=== PATIENT | female | born 1955 | race Caucasian/White ===

== ENCOUNTER 2017-01-23 18:05 | Emergency (ER) | payer OTHER ==
[~2017-01-23 18:05] MED LIST: APRES25 PO; ASAB PO; ASAEC PO; COREG12 PO; COREG6 PO; COZ50 PO; COZAAR100 MG PO; CRESTOR40 MG PO; ELIQUIS 2.5 MG2.5 MG PO; GLUCPH PO; HYDROCORTISO2.5 % TOP; IMDUR30 PO; IMDUR60 PO; ISOSORB DIN30 MG PO; JANUVIA50 PO; KLONO2; KLONO2 PO; KLONO5 PO; LANTUS SC; LEXAPRO10 PO; LEXAPRO20 PO; LIPITOR80 MG PO; LOP25 PO; LORTAB 5 PO; METHOC500B PO; NITROSTAT0.4 MG SL; NORCO1 TA1 PO; NORV5 PO; NOVOLOG SC; PLAVIX PO; RAN500 PO; SPIRO25 PO; SURFAK PO; V5 PO; VICODINTAB PO; VITD PO; ZETIA PO; ZOFRAN4; ZOFRAN4 PO; ZOL50 PO
[2017-01-23 18:31] LABS: BASOPHILS 0.3 %; BASOPHILS ABSOLUTE 0.02 10/3/uL (0.0-0.16); EOSINOPHILS 2.8 %; EOSINOPHILS ABSOLUTE 0.18 10/3/uL (0.0-0.53); HEMATOCRIT 38.1 % (36.0-48.0); HEMOGLOBIN 12.6 g/dL (12.0-16.0); IMMATURE GRANULOCYTES 0.3 %; IMMATURE GRANULOCYTES ABSOLUTE 0.02 10/3/uL (0.0-0.11); LYMPHOCYTES 38.9 %; LYMPHOCYTES ABSOLUTE 2.53 10/3/uL (0.67-4.30); MEAN CORPUS HGB CONC 33.1 g/dL (32.0-36.0); MEAN CORPUSCULAR HEMOGLOB 31.1 pg (26.0-34.0); MEAN PLATELET VOLUME 9.5 fL (9.2-13.0); MONOCYTES 8.9 %; MONOCYTES ABSOLUTE 0.58 10/3/uL (0.21-1.20); NEUTROPHILS 48.8 %; NEUTROPHILS ABSOLUTE 3.18 10/3/uL (2.02-8.40); PLATELET COUNT 237 10/3/uL (150-400); RBC DISTRIBUTION WIDTH 13.3 % (12.0-16.0); RED CELL COUNT 4.05 10/6/uL (4.0-5.6); WHITE BLOOD CELLS 6.5 10/3/uL (4.5-10.5)
[2017-01-23 18:32] LABS: MEAN CORPUSCULAR VOLUME 94.1 fL (80-100)
[2017-01-23 18:33] LABS: MANUAL DIFF NO %
[2017-01-23 18:49] LABS: A/G RATIO 0.9 (0.7-1.9); ALBUMIN 3.5 G/DL (3.5-5.0); ALKALINE PHOSPHATASE 77 U/L (45-117); BUN (BLOOD UREA NITROGEN) 31 MG/DL (6-23); CALCIUM, SERUM 9.1 MG/DL (8.5-10.4); CHLORIDE, SERUM 108 MMOL/L (96-112); CO2 (CARBON DIOXIDE) 28 MMOL/L (24-34); CREATININE 2.14 MG/DL (0.55-1.02); GFR AFRICAN AMERICAN 28 ML/MIN (>=60); GFR NON AFRICAN AMERICAN 24 ML/MIN (>=60); GLUCOSE, SERUM 100 MG/DL (60-99); POTASSIUM, SERUM 4.6 MMOL/L (3.5-5.3); SGOT(AST) 13 U/L (5-40); SGPT(ALT) 29 U/L (5-65); SODIUM, SERUM 144 MMOL/L (135-148); TOTAL BILIRUBIN 0.6 MG/DL (0-1.2); TOTAL PROTEIN 7.5 G/DL (6.0-8.5)
[2017-01-23 20:49] LABS: ASCORBIC ACID (UR NOT ORDER) NEG (NEG); BILIRUBIN, URINE NEGATIVE (NEG); ER URINALYSIS TAT 0 Hrs 10 Mins; KETONE, URINE NEGATIVE (NEG); LEUKOCYTE ESTERASE(NOT OR NEG (NEG); NITRITE (URINE) NEG (NEG); WBC (NOT ORDERED) (RFLEX) 1 (0-5)
[2017-06-07] MEDS ORDERED: APRES25 PO (13:11)
[2017-06-07] MEDS ORDERED: RANEXA1000 MG PO (13:13)
[2017-06-07] MEDS ORDERED: ELIQUIS 2.5 MG2.5 MG PO (13:13)
[2017-06-07] MEDS ORDERED: ZETIA PO (13:15)
[2017-06-07] MEDS ORDERED: COZAAR100 MG PO (13:15)
[2017-06-07] MEDS ORDERED: REQUIP5 PO (13:15)
[2017-06-07] MEDS ORDERED: CRESTOR40 MG PO (13:15)
[2017-06-07] MEDS ORDERED: IMDUR60 PO (13:15)
[2017-06-07] MEDS ORDERED: SPIRO25 PO (13:16)
[2017-06-07] MEDS ORDERED: COREG25 PO (13:18)
[2017-06-07] MEDS ORDERED: PLAVIX PO (13:19)
[2017-06-07] MEDS ORDERED: MAXIMUM D3 PO (13:19)
[2017-06-07] MEDS ORDERED: CYANO1000T PO (13:20)
[2017-06-07] MEDS ORDERED: NOVOLOG SC (13:20)
[2017-06-07] MEDS ORDERED: MELATONIN5 M1 PO (13:24)
[2017-06-07] MEDS ORDERED: TRESIBA FL200 UNIT/1 SC (13:24)
[2017-06-07] MEDS ORDERED: ZOL50 PO (13:25)
[2017-06-07] MEDS ORDERED: BIST PO (13:25)
[2017-06-07] MEDS ORDERED: NORCO1 TA1 PO (13:25)
[2017-06-07] MEDS ORDERED: AMOXIL875 MG PO (13:26)
[2017-06-08] MEDS ORDERED: NOVOPEN SC (16:31)
[2017-06-10] MEDS ORDERED: TOPAMAX25 PO (17:43)
== END 2017-01-23 23:00 | disposition home or self-care (01) ==
LOC: ER 18:05
PROVIDERS: Emergency Medicine
DX: R10.11 Right upper quadrant pain (principal); I12.9 Hypertensive chronic kidney disease with stage 1 through stage 4 chronic kidney disease, or unspecified chronic kidney disease; N18.9 Chronic kidney disease, unspecified; Z95.1 Presence of aortocoronary bypass graft; E11.9 Type 2 diabetes mellitus without complications; I25.10 Atherosclerotic heart disease of native coronary artery without angina pectoris; Z88.2 Allergy status to sulfonamides; Z88.8 Allergy status to other drugs, medicaments and biological substances; Z79.4 Long term (current) use of insulin; Z79.899 Other long term (current) drug therapy
CPT/HCPCS: 74176; 80053; 81001; 83690; 85025; 96374; 96375; 99284; J1170; J2405